=== PATIENT | male | born 1995 | race Caucasian/White ===

== ENCOUNTER 2019-01-25 00:15 | Emergency (ER) | payer MEDICAID, OTHER ==
[~2019-01-25] VITALS: Ht 175.3 cm; Wt 80.6 kg
[2019-01-25 00:16] VITALS: BP 176/113
--- NOTE | 2019-01-25 00:30 | NUR ---
PT GIVEN ICE PACK
--- NOTE | 2019-01-25 01:04 | NUR ---
PT HAS BEEN AND CONTINUES TO SCREAM THAT HE WANTS TO SEE A DOCTOR WITH A PHD. PT WAS INFORMED NONE OF THE DOCTORS HERE HAVE A PHD. PT STATES HE ONLY WANTS TO SEE A DOCTOR WITH A PHD. POC DISCUSSED. PT CONTINUES TO SCREAM. PT NOT RECEPTIVE TO CALMING MEASURES. PA HAS SEEN PT MULTIPLE TIMES DUE TO HIS SCREAMING.
--- NOTE | 2019-01-25 01:17 | NUR ---
PT REFUSING TO LEAVE. SECURITY NOW AT BEDSIDE. PT STATING HE WILL NOT LEAVE UNLESS THE POLICE COME.
--- NOTE | 2019-01-25 01:23 | NUR ---
PT ESCORTED OUT BY SECURITY. SECURITY STATES THE PT HAS BEEN 86'D
== END 2019-01-25 01:25 | disposition home or self-care (01) ==
LOC: ED 01:07
DX: G89.11 Acute pain due to trauma (principal); M25.571 Pain in right ankle and joints of right foot; F10.10 Alcohol abuse, uncomplicated; Z72.9 Problem related to lifestyle, unspecified; Z75.9 Unspecified problem related to medical facilities and other health care; Z87.891 Personal history of nicotine dependence; Y90.9 Presence of alcohol in blood, level not specified
CPT/HCPCS: 99283